=== PATIENT | male | born 1980 | race Caucasian/White ===

== ENCOUNTER 2022-09-09 07:51 | Day surgery (SDC) | payer MEDICAID ==
[~2022-09-09] VITALS: Ht 190.5 cm; Wt 113.4 kg
[2022-09-09] MEDS ORDERED: MIDAZOLAM HCL 5 MG/5 ML VIAL ONE (09:00)
[2022-09-09] MEDS ORDERED: MEPERIDINE 100 MG INJ. 100 MG/ML VIAL ONE (09:00)
[2022-09-09] MEDS ORDERED: DIPHENHYDRAMINE INJ 50 MG/ML VIAL ONE (09:11)
[2022-09-09 11:14] VITALS: BP_SYST 123
== END 2022-09-09 10:20 | disposition home or self-care (01) ==
LOC: SDS 07:51 → SMU 07:52 → SDS 10:20
PROVIDERS: ATTEND Internal Medicine Gastroenterology
DX: K92.1 Melena (principal); K62.1 Rectal polyp; K63.5 Polyp of colon; K57.30 Diverticulosis of large intestine without perforation or abscess without bleeding; K64.8 Other hemorrhoids; Z79.899 Other long term (current) drug therapy
CPT/HCPCS: 45385; 88305; 99152; G0378; J1200; J2250; J2175